=== PATIENT | female | born 1985 | race Caucasian/White ===

== ENCOUNTER 2016-11-27 05:41 | Inpatient (IN) ==
[2016-11-27] MEDS ORDERED: FAMOTIDINE 20 MG/2 ML VIAL IV ONE (06:04)
[2016-11-27] MEDS ORDERED: CITRIC ACID/SODIUM CITRATE 30 ML UDCUP PO ONE (06:04)
[2016-11-27] MEDS ORDERED: ceFAZolin 2,000 MG in PREMIX 1 EACH IV ONE (06:04)
[2016-11-27] MEDS: LACTATED RINGERS 1,000 ML IV SCH ×4 (06:30→21:32)
[2016-11-27 06:49] LABS: Basophils % 0.2 % (0.0-0.8); Eosinophils # 0.1 10*3/uL (0.0-0.87); Hematocrit 39.1 VOL% (35.7-47.0); Hemoglobin 13.1 GM/DL (12.0-16.0); Immature Granulocytes % 0.8 %; Immature Granulocytes Absolute 0.09 #; Lymphocytes # 2.9 10*3/uL (1.4-4.0); Lymphocytes % 25.7 % (21.3-54.2); Mean Corpuscular HGB Conc 33.5 GM/DL (32-36); Mean Corpuscular Hemoglobin 32 PG (27-34); Mean Corpuscular Volume 95.8 FL (87-102); Mean Platelet Volume 10.6 FL (9.6-12.0); Monocytes # 1.2 10*3/uL (0.11-0.8); Monocytes % 10.3 % (1.7-12.7); Platelet Count 299 T/CUMM (130-400); Red Blood Count 4.08 MC/CUMM (3.8-5.5); Red Cell Distribution Width 15.7 % (9.3-17.3); White Blood Count 11.3 T/CUMM (4-12)
--- NOTE | 2016-11-27 07:05 | OB/GYN History & Physical ---
History of Present Illness Chief complaint: 37+ weeks chronic hypertension previous History of present illness: Ms. Mora is a 31 year old female Previous at 37+ weeks estimated gestational age history of narcotic abuse and chronic hypertension currently on labetalol seen in conjunction with Dr. Hiro Gautam in [place] who recommends delivery at this time. Patient did receive 2 doses of steroids last week to accelerate lung maturity. She also admitted for repeat . Risks benefits alternatives were explained patient detail and informed consent was obtained for the above procedures all patient's questions were answered to her satisfaction Home Medications Medication Instructions Recorded Confirmed Type Labetalol Tab [Trandate Tab] 50 mg PO DAILY 07/20/16 11/27/16 History Buprenorphine HCl/Naloxone HCl 1.5 tablet PO DAILY 11/27/16 11/27/16 History [Suboxone 8 mg-2 mg Sl Film] Cyclobenzaprine [Flexeril] 1 tablet PO DAILY 11/27/16 11/27/16 History Sertraline [Zoloft] 1 tablet PO DAILY 11/27/16 11/27/16 History Allergies Allergy/AdvReac Type Severity Reaction Status Date / Time No Known Allergies Allergy Verified 07/20/16 15:55 12 point system: reviewed and no additional remarkable complaints except as stated Medical,Surgical,& Family Hx - Medical History Cardio: History of: Hypertension Psychological: History of: Anxiety Disorders, Depression Neurology: No history of: Seizures Genitourinary: History of: Recurring Urinary Tract Infections Musculoskeletal: History of: Back/Neck Problems Reproductive: History of: Endometriosis, Ovarian Cysts No history of: Ectopic , Complication - Surgical History Reproductive Surgeries: Surgical HX of;: Dilation and Curettage (1999) Patient denies;: Section - Family History Family History: Reports;: Family Anesthesia Reaction (mgm- memory loss), Family Diabetes (dad), Family Heart Disease (mgf), Family Hypertension (dad), Family Psychiatric Problems (parents), Family Stroke (parents) Denies;: Family Cancer, Family Hematology, Additional Family History - Social History Smoking Status: Current every day smoker Frequency of Alcohol Use: None 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: Vital Signs Temp Pulse Resp BP 11/27/16 06:03 98.1 F 90 18 107/64 General appearance: no acute distress - Head Head exam: Present: normal inspection, normocephalic, atraumatic - Eye Eye exam: Present: EOMI - Neck Neck exam: Present: normal inspection - Respiratory Respiratory exam: Present: clear to auscultation bilaterally - Breast Breasts: as per HPI Menstruation: as per HPI - Cardiovascular Cardiovascular exam: Present: regular rate and rhythm - GI/Abdominal GI/Abdominal exam: Present: normal bowel sounds - Extremities Exam Extremities exam: Present: normal inspection, normal capillary refill - Back Exam Back exam: Present: normal inspection - Neurological Exam Neurological exam: Present: alert, oriented X3 - Psychiatric Psychiatric exam: Present: normal affect, normal mood - Skin Skin exam: Present: normal color Assessment and Plan (1) with 37 or more completed weeks gestation Status: Acute Current Visit: Yes (2) Previous section Status: Acute Current Visit: Yes (3) Chronic hypertension Status: Acute Current Visit: Yes (4) Narcotic abuse Status: Acute Current Visit: Yes Results - Labs CBC & BMP: 11/27/16 06:24
[2016-11-27] MEDS ORDERED: OXYTOCIN/LR 20 UNIT/1,000 ML BAG IV ONE ×3 (07:30→10:02)
[2016-11-27] MEDS ORDERED: ONDANSETRON 4 MG/2 ML VIAL ONE (08:52)
[2016-11-27] MEDS ORDERED: PROPOFOL 200 MG/20 ML VIAL IV ONE (08:52)
[2016-11-27] MEDS ORDERED: NALOXONE 0.4 MG/ML VIAL IV PRN (09:49)
[2016-11-27] MEDS ORDERED: HYDROmorphone PCA 30 MG/30 ML SYRINGE IV SCH (10:00)
[2016-11-27] MEDS ORDERED: ACETAMINOPHEN 325 MG TABLET PO PRN (10:02)
[2016-11-27] MEDS ORDERED: BENZOCAINE 20%/MENTHOL 0.5% SPRAY 56 GM CAN TOP PRN (10:02)
[2016-11-27] MEDS ORDERED: BISACODYL 10 MG SUPP RECTAL PRN (10:02)
[2016-11-27] MEDS ORDERED: HYDROCORTISONE 2.5% RECTAL CREAM 30 GM TUBE TOP PRN (10:02)
[2016-11-27] MEDS ORDERED: ONDANSETRON 4 MG/2 ML VIAL IV PRN (10:02)
[2016-11-27] MEDS ORDERED: oxyCODONE/ACETAMINOPHEN 5-325 MG TABLET PO PRN (10:02)
[2016-11-27] MEDS ORDERED: DIPH/TET/ACEL PERT BOOSTER VACCINE 0.5 ML VIAL IM ONE (10:02)
[2016-11-27] MEDS ORDERED: LANOLIN 50% CREAM 0.3 OZ TUBE TOP PRN (10:02)
[2016-11-27] MEDS ORDERED: RHO(D) IMMUNE GLOBULIN 300 MCG SYRINGE IM ONE (10:02)
[2016-11-27] MEDS ORDERED: MEASLES/MUMPS/RUBELLA VACCINE 0.5 ML VIAL SUBCUT ONE (10:02)
[2016-11-27] MEDS ORDERED: WITCH HAZEL PADS 100/JAR TOP PRN (10:02)
--- NOTE | 2016-11-27 10:02 | Operative Note ---
Date of procedure: 11/27/16 Pre-op diagnosis: 37+ weeks chronic hypertension opioid dependency previous C-secti Post-op diagnosis: same Procedure: This is Dr. Cristobal dictating operative note: Preoperative diagnosis intrauterine intrauterine at 37+ weeks 2. Previous Postoperative diagnosis same Procedure repeat low transverse section Surgeon Dr. Cristobal Anesthesia spinal Findings liveborn [male] 5.2 pounds Apgars 8 9 Complications none Estimated blood loss [400] mL Disposition patient to recovery room in [stable] condition. to nursery in [stable] condition Operative description: After the risks benefits and alternatives were explained to the patient in detail and informed consent was obtained, the patient was taken to the operating room where she was placed in the supine position. After achieving appropriate anesthesia the abdomen was prepped and draped in the usual sterile fashion. A Johansen catheter was placed without difficulty. After the appropriate time out and after adequate anesthesia was ascertained a Pfannenstiel skin incision was made and carried down through the subcutaneous tissue down to the fascia. The fascia was nicked in the midportion and undermined and incised both laterally and cephalad using sharp dissection with the curved Singh scissors. 2 Juan Francisco clamps were used to elevate the rectus fascia superiorly which was bluntly and sharply dissected away from the rectus muscle below. This was repeated inferiorly. The rectus muscles were then bluntly in the midline the peritoneum identified grasped with 2 curved hemostats and entered sharply using the curved Metzenbaum scissors. A bladder blade was then placed in the pelvis and a bladder flap was created off the lower uterine segment using sharp dissection with the Metzenbaum scissors. The bladder blade was then repositioned. A transverse incision was made across the lower uterine segment down to the amnion. Entry into the amnion revealed [ clear] amniotic fluid. The uterine incision was then extended laterally using bilateral finger fractionation. Upon palpation the presenting part was breech which was gently elevated out of the pelvis and delivered onto the abdominal wall using appropriate fundal pressure. The infant's nose and oropharynx were bulb and DeLee suctioned and the had spontaneous cry delivery. The cord was doubly clamped and cut and the was handed over to the team for care. Cord blood was obtained. The placenta was delivered manually and IV Pitocin antibiotics and Zofran were begun. The uterus was then exteriorized and placed in a wet laparotomy sponge. 2 fingers wrapped around a wet laparotomy sponge were used to remove all residual membranes from the uterine cavity. The uterus was then closed in 2 layers. The first layer of myometrium was closed with #1 Monocryl suture in an inner locking fashion beginning at both angles and overlapping slightly in the midline. The second layer of myometrium was closed with #1 Monocryl suture in a running imbricating stitch beginning at the right angle and continuing the length of the uterine incision. Hemostasis was noted to be excellent. The posterior cul-de-sac was then irrigated and cleansed with a wet laparotomy sponge and the uterus was placed back in the abdominal cavity. Both pericolic gutters were then irrigated and cleansed with a wet lap sponge. The uterine incision was then re-irrigated and again noted to be hemostatic. All counts were noted to be correct. The subcutaneous tissue was then closed using 3-0 Vicryl suture in a running fashion. The subfascial area was made hemostatic using electrocautery and closed with #1 PDS suture in a running fashion beginning at both angles and overlapping slightly in the midline. The subcutaneous tissue was irrigated and made hemostatic using electrocautery and closed with 2-0 Vicryl suture in a running fashion and the skin was closed with wide skin regina and a sterile pressure bandage was applied to the wound. All sponge needle and instrument counts were correct -3 at the end of the procedure. The patient's urine was [ clear] both at the beginning in the end of the procedure. The patient was taken to the recovery room in stable condition Anesthesia: spinal Surgeon / Physician: Seymour Cristobal Estimated blood loss: other (400) Specimens: none sent Condition: stable Disposition: floor Results - Labs CBC & BMP: 11/27/16 06:24 Discharge Plan - Discharge Medications No Action Cyclobenzaprine [Flexeril] 1 tablet PO DAILY Sertraline [Zoloft] 1 tablet PO DAILY Buprenorphine HCl/Naloxone HCl [Suboxone 8 mg-2 mg Sl Film] 1.5 tablet PO DAILY Labetalol Tab [Trandate Tab] 50 mg PO DAILY - Follow Up or Referral - Forms/Instructions
[2016-11-27] MEDS ORDERED: fentaNYL 100 MCG/2 ML VIAL ONE (10:18)
[2016-11-27] MEDS ORDERED: MORPHINE 10 MG/10 ML VIAL ONE (10:18)
[2016-11-27] MEDS ORDERED: MIDAZOLAM 2 MG/2 ML VIAL ONE (10:18)
[2016-11-27] MEDS ORDERED: ePHEDrine 50 MG/ML AMP ONE (10:18)
[2016-11-27] MEDS ORDERED: KETAMINE 500 MG/10 ML VIAL ONE (10:19)
[2016-11-27 10:21] LABS: Cord Venous Blood HCO3 22.1 MMOL/L; Cord Venous Blood PCO2 44.6 MMHG; Cord Venous Blood PO2 39.4
--- NOTE | 2016-11-27 18:12 | Anesthesia Post-Op ---
Anesthesia Post OP - Post Ansesthetic Evaluation Patient seen in post op: Yes Resp: within normal limits CV: within normal limits Mental: within normal limits Temp: within normal limits [id number]: within normal limits Nausea and Vomiting: within normal limits Pain: within normal limits
[2016-11-27] MEDS: ceFAZolin 2,000 MG in PREMIX 1 EACH IV SCH (18:27)
[2016-11-28] MEDS: ceFAZolin 2,000 MG in PREMIX 1 EACH IV SCH ×2 (00:03→05:50)
[2016-11-28 06:13] LABS: Basophils % 0.2 % (0.0-0.8); Eosinophils # 0.2 10*3/uL (0.0-0.87); Eosinophils % 0.9 % (0.00-10.9); Hematocrit 30.3 VOL% (35.7-47.0); Immature Granulocytes % 0.4 %; Immature Granulocytes Absolute 0.07 #; Lymphocytes # 2.3 10*3/uL (1.4-4.0); Lymphocytes % 13.7 % (21.3-54.2); Mean Corpuscular Hemoglobin 32 PG (27-34); Mean Corpuscular Volume 96.8 FL (87-102); Mean Platelet Volume 10.8 FL (9.6-12.0); Monocytes # 0.7 10*3/uL (0.11-0.8); Monocytes % 4.4 % (1.7-12.7); Neutrophils # 13.6 10*3/uL (1.4-7.4); Neutrophils % 80.4 % (38.7-73.9); Platelet Count 233 T/CUMM (130-400); Red Blood Count 3.13 MC/CUMM (3.8-5.5); Red Cell Distribution Width 15.8 % (9.3-17.3)
--- NOTE | 2016-11-28 07:04 | OB/GYN Progress Note ---
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 She is tolerating her diet. She is alert and oriented -3 Cardiovascular regular rate and rhythm Lungs clear to auscultation Abdomen soft with appropriate tenderness and bowel sounds are present and her incision is dry no bleeding Is good refill HEENT shows pink conjunctiva assessment 1 day of surgery doing well Plan continue present management with expected DC in a.m. 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
[2016-11-28] MEDS ORDERED: BUPRENORPHINE SL SCH (09:00)
[2016-11-28] MEDS ORDERED: NALOXONE SL SCH (09:00)
[2016-11-28] MEDS ORDERED: [UNRECOGNIZED DRUG - OTHER] SL SCH (09:00)
[2016-11-28] MEDS: SERTRALINE 50 MG TABLET PO SCH (09:15)
[2016-11-28] MEDS: DOCUSATE SODIUM 100 MG CAPSULE PO SCH ×2 (09:15→21:05)
[2016-11-28] MEDS: LABETALOL 100 MG TABLET PO SCH (09:16)
[2016-11-28] MEDS: CYCLOBENZAPRINE 10 MG TABLET PO SCH (09:16)
[2016-11-28] MEDS: oxyCODONE/ACETAMINOPHEN 5-325 MG TABLET PO PRN ×3 (10:58→22:04)
[2016-11-28] MEDS: IBUPROFEN 800 MG TABLET PO PRN ×2 (14:11→21:05)
[2016-11-28] MEDS ORDERED: MAGNESIUM HYDROXIDE SUSP 30 ML UDCUP PO PRN (20:42)
[2016-11-29] MEDS: oxyCODONE/ACETAMINOPHEN 5-325 MG TABLET PO PRN ×2 (04:01→07:56)
[2016-11-29] MEDS: IBUPROFEN 800 MG TABLET PO PRN (04:02)
--- NOTE | 2016-11-29 07:12 | Discharge Summary ---
Hospital Course - Hospital Course Hospital Course: Postoperatively the patient did well. She had quick return of bowel bladder function management afebrile and normotensive throughout her hospitalization. She is counseled discharged on post operative day #2 Diagnosis - Discharge Diagnosis (1) with 37 or more completed weeks gestation Status: Acute (2) Previous section Status: Acute (3) Chronic hypertension Status: Acute (4) Narcotic abuse Status: Acute Discharge Plan - Discharge Data Disposition: Disch To Home/Self Care Condition at Discharge: Stable Discharge Diet: regular diet Activity: increase activity as tolerated, no lifting, other (Pelvic rest) Hygiene: may shower Weight Bearing at Discharge: full weight bearing Driving: not until seen by doctor Contact your physician if you experience:: fever over 101, Difficulty voiding, Redness or swelling, Nausea/Vomiting, Shortness of breath, Bleeding, pain uncontrolled by pain medications - Discharge Medications New Acetaminophen Tab [Tylenol Tab] 650 mg PO Q6H PRN tablet PRN Reason: Fever > 100.4 Or Headache Labetalol Tab [Trandate Tab] 50 mg PO DAILY tablet oxyCODONE/ACETAMINOPHEN 5-325 [Percocet 5-325] 1 tablet PO Q4H PRN #20 tablet PRN Reason: Pain Moderate (4-7) Continue Cyclobenzaprine [Flexeril] 1 tablet PO DAILY Sertraline [Zoloft] 1 tablet PO DAILY Buprenorphine HCl/Naloxone HCl [Suboxone 8 mg-2 mg Sl Film] 1.5 tablet PO DAILY Labetalol Tab [Trandate Tab] 50 mg PO DAILY - Follow Up or Referral Follow Up: Seymour Cristobal MD [Physician] - 1 Week - Forms/Instructions Exam - Constitutional Vitals: Period Temp Pulse Resp BP Sys/Britton Pulse Ox Last 24 Hr 96.9 F-99 F 71-95 16-20 90-118/61-80 95-97 DS: Provider Date of admission: 11/27/16 06:04 Primary care physician: Josh Harden Attending physician on admission: Vickey Vicente Consults: 11/27/16 06:04 Consult to Anesthesiology [CONS] Routine Consulting Provider: Reason for Anesthesiology: Pre-op Clearance 11/27/16 10:02 Consult to Front End Java Developer [CONS] Routine Consult Front End Java Developer: Breast Feeding Discharging clinician: Vickey Vicente Expected date of discharge: 11/29/16
[2016-11-29 07:49] VITALS: BP 113/64
[2016-11-29] MEDS: SERTRALINE 50 MG TABLET PO SCH ×2 (07:57→10:53)
[2016-11-29] MEDS: DOCUSATE SODIUM 100 MG CAPSULE PO SCH ×2 (07:58→10:54)
[2016-11-29] MEDS: LABETALOL 100 MG TABLET PO SCH (10:53)
[2016-11-29] MEDS: CYCLOBENZAPRINE 10 MG TABLET PO SCH (10:53)
== END 2016-11-29 13:00 | disposition home or self-care (01) | DRG 540 ==
LOC: N.LDOUT 05:41 → N.LD 05:45 → N.OB 12:51
PROVIDERS: ADMIT Specialist; ATTEND Specialist
PROC: LDCSECT (ICD-10-PCS; 2016-11-27 07:00)